=== PATIENT | female | born 1980 ===

== ENCOUNTER 2023-12-29 14:00 | Emergency (ER) | payer SELFPAY ==
[2023-12-29 14:03] VITALS: BP 132/90
--- NOTE | 2023-12-29 14:16 | EDRN ---
Pt's friend states that pt gave her all her meds in fear of pt taking her medications.
--- NOTE | 2023-12-29 16:53 | ED.GENMED ---
History of Present Illness
General
Chief Complaint: Crisis Evaluation
Source: patient
Exam Limitations: none
Time Seen by Provider: 12/29/23 15:52
Nursing documentation reviewed up to this point in time: agreed with
History of Present Illness
History of Present Illness:
PT IS A 43 Y/O F
with h/o PTSD, anxiety, depresion, OCD
here with friend after admitting to friend that she has had some suicidal thougths the past few days
she says she asked her friend to take her pill bottle from her so she wouldn't hurt herlsef. pt says now she doesn't wish to harm ehreslf but has had a lot of depression related to being homeless
[place] left [place] in june when she had a job that she worked remotely on
she was going to move to [facility]
pt says that after she moved she lost her job
she has been bouncing around staying with friends
she has been with this friend for th epast few weeks and knows she canont stay but doesn't have a job or options
she is feeling hopeless
denies overdose, drugs, ahlluciantions, vomiting,, confusion, medical complaints
Past History
Past History
ED Past Medical History: Psychiatric
ED Past Surgical History: None
Social History
Tobacco: Non-smoker
Alcohol: None
Drug: None
Personal: Single
Living: homeless
Employment: Not employed
Review of Systems
Review of Systems
Allergies reviewed?: Yes
All Other Systems: Not applicable
Phy Exam
Physical Exam
Physical Exam:
GENERAL: Alert , in no apparent distress
EYE: pupils equal and reactive
NECK: Supple
ENT: o/p clr, mmm.
CARDIAC: Regular rate and rhythm .
LUNGS: Clear breath sounds bilaterally, no acute respiratory distress, no wheezes/rales/rhonchi
ABDOMEN: Soft, without focal tenderness, no r/g, no cvat, normal bowel sounds
NEUROLOGICAL: Alert and oriented, no focal neuro deficits
SKIN: Warm and dry, skin intact.
MUSCULOSKELETAL: No edema, well perfused. neg anoop's sign
PSYCH: Normal and appropriate interaction.
Course
Orders/Labs/Results
Orders:
Orders
12/29/23 14:15
1:1 Observation - Suicide/ Violent Behavior As Directed
12/29/23 16:33
Crisis Consult Urgent
Reason for Consult: SI
Crisis Consult Urgent
Reason for Consult: crisis, passive si
Vital Signs
Initial and Last Documented VS:
Initial Vital Signs
Temp Pulse Resp BP Pulse Ox
98.2 F 78 14 132/90 98
12/29/23 14:03 12/29/23 14:03 12/29/23 14:03 12/29/23 14:03 12/29/23 14:03
Last Documented Vital Signs
Temp Pulse Resp BP Pulse Ox
98.2 F 74 18 126/78 99
12/29/23 14:03 12/29/23 18:14 12/29/23 18:14 12/29/23 18:14 12/29/23 18:14
MDM/Problems Addressed
Differential Diagnosis Includes:
homelessness, depression, stress response, less likely SI
MDM/Problems Addressed:
43 y/o F with h/o depression/PTSD/OCD
Here for passive suicidal thoughts apparently a couple of days ago when she mention to her friend that she thought the friend to take away her medications just in case. Patient currently has no suicidal thoughts. She is in a tough position without
a job and without a home after moving from [place]. She has been staying with friends but having some difficulty. She does have money and can eat and take her medications. She has been feeling more stressed and depressed but is not suicidal currently.
She is not using any drugs. She has a place to stay right now with her friend just for a few more days. On exam she has no medical complaints and a normal medical screening exam. I discussed the case with the crisis team and they did a
consultation and agree that the patient is stable for outpatient resources. She was given instructions to return if she were feeling suicidal.
*Critical Care Note
Total Time (30-74mins, 75-104mins- exclusive of procedures): Not Applicable
ED Attending Note
-
Portions of this chart may have been created with voice recognition software.� Occasional wrong word or��sound alike� substitutions may have occurred due to the inherent limitations of voice recognition software.
Discharge Plan
Departure
Patient Disposition: Home (Routine Discharge)
Date of Disposition: 12/29/23
Time of Disposition: 18:15
Patient with high blood pressure during this ER visit?: No
Condition: Fair
Covid-19: Not Applicable
Discharge Problem:
Homelessness
Instructions: Depression, Adult (DC)
Referrals:
NONE,* [Family Provider] -
Activity Restrictions/Additional Instructions:
YOU WERE GIVEN SOME RESOURCES FOR OUTPATIENT THERAPY PROGRAMS AND OUTREACH PROGRAM FOR HOPEFULLY GETTING HOUSING
RETURN FOR ANY CONCERNS/MEDICAL COMPLAINTS
Interventions
Interventions:
*Risk Screen - Suicide Last Done: 12/29/23 14:12
*General Assessment Last Done: 12/29/23 15:08
ED- Fall Risk Assessment Last Done: 12/29/23 15:08
*Nursing Disposition Last Done: 12/29/23 18:25
ED-Psychological Assessment Last Done: 12/29/23 15:08
Discharge Date and Time
Print Language: [id number]
[2023-12-29 18:14] VITALS: BP 126/78
== END 2023-12-29 19:35 | disposition home or self-care (01) ==
LOC: EMR 14:00
PROVIDERS: EMERGENCY PHYSICIAN Emergency Medicine
DX: R45.851 Suicidal ideations (principal); Z59.00 Homelessness unspecified; F41.9 Anxiety disorder, unspecified; F32.A Depression, unspecified; F43.10 Post-traumatic stress disorder, unspecified; F42.9 Obsessive-compulsive disorder, unspecified; D64.9 Anemia, unspecified; F90.9 Attention-deficit hyperactivity disorder, unspecified type; Z87.820 Personal history of traumatic brain injury
CPT/HCPCS: 99283